=== PATIENT | female | born 1965 | race Caucasian/White ===

== ENCOUNTER → 2016-11-12 | Outpatient (CLI) | payer BC | LOC: RAD 13:57 | DX: R63.5 Abnormal weight gain (principal); E66.9 Obesity, unspecified ==

== ENCOUNTER → 2018-04-20 | Outpatient (CLI) | payer OTHER | LOC: MAMMO 15:28 | DX: Z12.31 Encounter for screening mammogram for malignant neoplasm of breast (principal) ==

== ENCOUNTER → 2018-07-21 | Outpatient (CLI) | payer OTHER | LOC: RAD 13:26 | DX: M19.071 Primary osteoarthritis, right ankle and foot (principal); M77.31 Calcaneal spur, right foot ==

== ENCOUNTER → 2019-11-18 | Outpatient (CLI) | payer OTHER ==
[2019-11-18 13:54] LABS: BASO # 0.1 (0.02-0.10); EOS # 0.1 (0.04-0.40); EOS % 2.1 % (1.0-5.0); HEMATOCRIT 41.2 % (37.0-47.0); HEMOGLOBIN 13.6 g/dL (12.5-16.0); LYMPH# 1.6 (1.50-4.00); MEAN CELL VOLUME 89 fl (78-100); MEAN CORPUSCULAR HEMOGLOBIN 29 pg (27-31); MEAN CORPUSCULAR HGB CONC 33 g/dL (33-37); MEAN PLATELET VOLUME 9.4 fl (7.4-10.4); MONO # 0.4 (0.20-0.80); NEU # 4.4 (1.40-6.50); PLATELET COUNT 271 K/mm3 (130-400); RED BLOOD COUNT 4.65 M/mm3 (4.10-5.30); WHITE BLOOD COUNT 6.7 K/mm3 (4.8-10.8)
[2019-11-18 14:00] LABS: ALBUMIN 4.3 g/dL (3.5-5.0)
[2019-11-18 14:02] LABS: CALCIUM 9.1 mg/dL (8.3-10.5)
[2019-11-18 14:03] LABS: TOTAL PROTEIN 7.6 g/dL (6.4-8.3)
[2019-11-18 14:05] LABS: TOTAL BILIRUBIN 0.3 mg/dL (0.2-1.2)
[2019-11-19 04:22] LABS: FOLLICLE STIMULATING HORMONE 99.7 mIU/mL (()); LUTENIZING HORMONE 28.9 mIU/mL (())
[2019-11-29 10:45] LABS: ESTRONE (E1) LEVEL A
== END ==
LOC: LAB 13:29
PROVIDERS: Physician Assistant
DX: L65.9 Nonscarring hair loss, unspecified (principal); F31.9 Bipolar disorder, unspecified; N95.1 Menopausal and female climacteric states; R63.5 Abnormal weight gain

== ENCOUNTER → 2022-02-12 | Outpatient (CLI) | payer OTHER ==
[2022-02-12 11:36] LABS: ALBUMIN 4.1 g/dL (3.5-5.0); POTASSIUM 4.3 mmol/L (3.5-5.1)
[2022-02-12 11:37] LABS: CALCIUM 9.3 mg/dL (8.3-10.5)
[2022-02-12 11:38] LABS: TOTAL PROTEIN 7.2 g/dL (6.4-8.3)
[2022-02-12 11:40] LABS: TOTAL BILIRUBIN 0.3 mg/dL (0.2-1.2)
[2022-02-12 11:51] LABS: BASO # 0.06 K/mm3 (0.02-0.10); EOS # 0.12 K/mm3 (0.04-0.40); EOS % 2.2 % (1.0-5.0); HEMATOCRIT 41.2 % (37.0-47.0); HEMOGLOBIN 13.5 g/dL (12.5-16.0); LYMPH# 1.21 K/mm3 (1.50-4.00); MEAN CELL VOLUME 88 fl (78-100); MEAN CORPUSCULAR HEMOGLOBIN 29 pg (27-31); MEAN CORPUSCULAR HGB CONC 33 g/dL (33-37); MEAN PLATELET VOLUME 9.1 fl (7.4-10.4); MONO # 0.42 K/mm3 (0.20-0.80); NEU # 3.76 K/mm3 (1.40-6.50); PLATELET COUNT 280 K/mm3 (130-400); RED BLOOD COUNT 4.67 M/mm3 (4.10-5.30); RED CELL DISTRIBUTION WIDTH 12.9 % (11.5-14.5); WHITE BLOOD COUNT 5.6 K/mm3 (4.8-10.8)
== END ==
LOC: LAB 11:06
PROVIDERS: Physician Assistant
DX: Z13.29 Encounter for screening for other suspected endocrine disorder (principal); M25.562 Pain in left knee; R63.5 Abnormal weight gain